=== PATIENT | female | born 1965 | race Asian ===

== ENCOUNTER 2017-01-15 10:05 | Outpatient (CLI) | payer OTHER | END 2017-01-15 17:07 | disposition home or self-care (01) | LOC: SMI 10:05 | PROVIDERS: ATTEND Family Medicine | DX: M47.892 Other spondylosis, cervical region (principal); R42 Dizziness and giddiness | CPT/HCPCS: 70551; 72141 ==

== ENCOUNTER 2018-08-05 03:40 | Inpatient (IN) | payer OTHER ==
[~2018-08-05] VITALS: Ht 152.4 cm; Wt 61.5 kg
[2018-08-05] VITALS (7 sets, daily range): BP systolic 106–148
--- NOTE | 2018-08-05 03:40 | NUR ---
Pt ambulatory to bed 8 for evaluation
--- NOTE | 2018-08-05 03:58 | NUR ---
ER Dr. Luis at bedside examining patient.
[2018-08-05] MEDS ORDERED: METF-833 PO (03:59)
[2018-08-05] MEDS ORDERED: NACL 0.9% 1,000 ML IV ONE (04:00)
[2018-08-05] MEDS ORDERED: KETOROLAC TROMETHAMINE 30 MG VIAL IVP ONE (04:00)
[2018-08-05] MEDS ORDERED: ONDANSETRON HCL 4 MG/2 ML VIAL IVP ONE (04:00)
--- NOTE | 2018-08-05 04:00 | NUR ---
Patient AOx4, ambulatory, presents to ER with complaint of RUQ abdominal pain 12/18 since 229. Patient states that the pain woke her up from her sleep. Patient also states she is nauseous but has not vomited. Patient states she has not medicated for pain. Denies fever or chills. No other symptoms or complaints.
[2018-08-05] MEDS ORDERED: INSULIN SQ (04:01)
--- NOTE | 2018-08-05 04:12 | NUR ---
# 22 gauge angiocath placed to left hand. Use of asceptic technique. Opsite placed over site. Blood return noted. Blood for lab drawn from site. Flushed with 10 cc of normal saline. No evidence of infiltration noted. Patient tolerated well.
[2018-08-05 04:25] LABS: BASOPHILS % (AUTO) 0.7 % (0.0-2.0); EOSINOPHILS # (AUTO) 0.3 K/uL (0.0-0.4); EOSINOPHILS % (AUTO) 4.9 % (0.0-4.0); HEMATOCRIT 40.1 % (36-48); HEMOGLOBIN 13.3 g/dL (12.0-16.0); LYMPHOCYTES # (AUTO) 1.9 K/uL (1.0-5.5); LYMPHOCYTES % (AUTO) 29.7 % (20.5-51.5); MEAN CORPUSCULAR HEMOGLOBIN 29 pg (27-31); MEAN CORPUSCULAR HGB CONC 33 % (32-36); MEAN CORPUSCULAR VOLUME 87 fL (79.0-98.0); MONOCYTES # (AUTO) 0.5 K/uL (0.0-1.0); MONOCYTES % (AUTO) 7.9 % (1.7-9.3); NEUTROPHILS # (AUTO) 3.7 K/uL (1.8-7.7); NEUTROPHILS % (AUTO) 56.8 % (40.0-70.0); PLATELET COUNT (AUTO) 321 K/uL (130-430); RED CELL DISTRIBUTION WIDTH 12.5 % (9.0-15.0); WHITE BLOOD COUNT (AUTO) 6.5 K/uL (4.8-10.8)
[2018-08-05 04:36] LABS: CREATININE 0.62 mg/dL (0.55-1.30); POTASSIUM 3.8 mmol/L (3.5-5.1)
[2018-08-05 04:42] LABS: ALBUMIN 3.3 g/dL (3.4-4.8); TOTAL BILIRUBIN 0.2 mg/dL (0.0-1.0)
[2018-08-05] MEDS ORDERED: MORPHINE 4 MG/ML INJ. SYRINGE IVP ONE (05:45)
--- NOTE | 2018-08-05 05:54 | NUR ---
End of life care decisions discussed with patient by Dr. Luis. Opportunity for questions and concerns addressed. Patient's code status is FULL CODE, paperwork completed and placed in chart.
[2018-08-05] MEDS ORDERED: LIP10 PO (06:01)
[2018-08-05] MEDS ORDERED: GLIP10TA21 PO (06:01)
[2018-08-05] MEDS ORDERED: VITD2000 PO (06:01)
[2018-08-05] MEDS ORDERED: METF750T PO (06:01)
--- NOTE | 2018-08-05 06:01 | NUR ---
Medication reconciliation completed with information provided by patient. Any prior medication reconciliation on file was reviewed and corrected.
--- NOTE | 2018-08-05 06:13 | NUR ---
Patient will be admitted to care of [facility] Admitted to Med Surg unit. Will go to room 135. Belongings list completed. Summary report printed. Report will be given at bedside.
[2018-08-05] MEDS ORDERED: D5W 1,000 ML IV PRN (06:14)
[2018-08-05] MEDS ORDERED: D5/0.45 NS 1,000 ML IV SCH ×2 (06:14→06:15)
[2018-08-05] MEDS ORDERED: MORPHINE 4 MG/ML INJ. SYRINGE IVP PRN ×4 (06:15→13:00)
[2018-08-05] MEDS ORDERED: DEXTROSE 50% JECT 50 ML DISP.SYRIN IVP PRN (06:15)
[2018-08-05] MEDS ORDERED: LORazepam 2 MG/ML VIAL IVP PRN (06:15)
[2018-08-05] MEDS ORDERED: ONDANSETRON HCL 4 MG/2 ML VIAL IVP PRN (06:15)
[2018-08-05] MEDS ORDERED: GLUCOSE 15 GM GEL (in 37.5 GM TUBE) PO PRN (06:15)
[2018-08-05] MEDS ORDERED: MORPHINE 2 MG/ML INJ. SYRINGE IVP PRN (06:15)
--- NOTE | 2018-08-05 06:30 | NUR ---
ADMISSION: The patient, SAKSHI RAMOS, 53 y/o, F admitted by SAUL PADRON MD, with the diagnosis of cholecystitis , to room 108 C ,was given written information regarding hospital policies, unit procedures and contact persons.
--- NOTE | 2018-08-05 07:21 | NUR ---
NEW IV : PT REQUESTED TO START A NEW IV SINCE THE OLD ONE IS ON THE ANTERIOR WRIST AND IT HURTS WHILE MOVING HER HAND , PER PTS REQUEST NEW IV STARTED TO THE R FA 22 G, X 2 ND ATTEMPT ,GOOD BLOOD RETURN NOTED , IV FLUSHED WELL , IV CATH ON THE LEFT WRIST REMOVED , CATH TIP IS INTACT , NO ACTIVE BLEEDING NOTED ; PT TOLERATED WELL . IV FLUIDS NOT STARTED YET - WAITING FOR THE PHARMACY TO VERIFY THE ORDER
--- NOTE | 2018-08-05 08:00 | NUR ---
OPENING NOTE patient received resting in bed A&O x4, patient denies any acute distress or pain at this time, breathing is even and unlabored on room air, educated patient on plan of care and call light system, will continue to monitor, safety precautions in place, at bedside, call light within reach.
--- NOTE | 2018-08-05 08:52 | NUR ---
CONSULT SURGERY CHOLECYSTITIS OU MUKESH [phone] S/W [facility] OFFICE
--- NOTE | 2018-08-05 10:27 | NUR ---
NOTES patient is resting in bed A&O x4, breathing is even and unlabored on room air, IVF infusing as ordered, patient states slight numbness in right fingers but she says she feels this when she wakes up after sleeping, no other acute distress or pain is noted, NPO status in place, safety precautions in place, call light within reach.
--- NOTE | 2018-08-05 12:22 | NUR ---
PATIENT OFF FLOOR for surgery at this time.
[2018-08-05] MEDS ORDERED: LR 1,000 ML IV SCH (12:59)
[2018-08-05] MEDS ORDERED: METOCLOPRAMIDE HCL 10 MG/2 ML VIAL IVP PRN (13:00)
[2018-08-05] MEDS ORDERED: NS IRRIG SOLN 1000 ML IR ONE (13:25)
[2018-08-05] MEDS ORDERED: NEOSTIGMINE METHYLSULFATE 1 MG/ML, 10 ML VIAL ONE (13:25)
[2018-08-05] MEDS ORDERED: PHENYLEPHRINE HCL 10 MG/ML VIAL (NEOSYNEPHRINE) ONE (13:25)
[2018-08-05] MEDS ORDERED: MIDAZOLAM HCL 5 MG/ML VIAL (VERSED) IV ONE (13:25)
[2018-08-05] MEDS ORDERED: BUPIVACAINE /EPINEPHRINE/PF 0.5% 30 ML VIAL INJ ONE (13:25)
[2018-08-05] MEDS ORDERED: ROCURONIUM BROMIDE 10 MG/ML (ZEMURON) ONE (13:25)
[2018-08-05] MEDS ORDERED: NS 1000 ML IV.SOLN IV ONE (13:25)
[2018-08-05] MEDS ORDERED: LR 1,000 ML IV.SOLN IV ONE (13:25)
[2018-08-05] MEDS ORDERED: GLYCOPYRROLATE 0.2 MG/ML VIAL ONE (13:25)
[2018-08-05] MEDS ORDERED: PROPOFOL 200MG/ 20ML VIAL (DIPRIVAN) IV ONE (13:25)
[2018-08-05] MEDS ORDERED: ONDANSETRON HCL 4 MG/2 ML VIAL ONE (13:25)
[2018-08-05] MEDS ORDERED: SEVOFLURANE 15 MIN GAS INH ONE (13:25)
[2018-08-05] MEDS ORDERED: CEFAZOLIN 1 GM IVPB PREMIX 50 ML IV ONE (13:25)
[2018-08-05] MEDS ORDERED: fentaNYL CITRATE 250 MCG/5 ML AMP ONE (13:25)
--- NOTE | 2018-08-05 15:10 | NUR ---
PATIENT BACK FROM SURGERY vital signs are stable, patient denies any acute distress or pain, will continue to monitor, family at bedside.
--- NOTE | 2018-08-05 17:25 | NUR ---
BLOOD SUGAR IS 249 at this time, 4 units of insulin given per sliding scale, educated patient to eat dinner.
[2018-08-05] MEDS: INSULIN REGULAR, HUMAN 100 UNITS/ML, 10 ML VIAL (novoLIN R) SUBCUT PRN ×2 (17:26→23:24)
--- NOTE | 2018-08-05 18:26 | NUR ---
CLOSING NOTE patient is resting in bed, patient is tolerating clear liquid diet well with no n/v, patient states she is feeling dizzy, educated patient to call if she needs to get out of bed, IVF infusing as ordered, all needs were met throughout shift, CHARLI drain intact, 3 abdominal dressings intact, will endorse report to oncoming nurse, family at bedside, call light within reach.
--- NOTE | 2018-08-05 19:45 | NUR ---
Opening notes Patient resting in bed. Patient complains of nausea and vomited yellow liquid. Zofran was given. No other needs at this time. IV patent and intact. Bilateral SCDs in place. Call light with the patient. Safety precautions in place. Family at bedside.
--- NOTE | 2018-08-05 21:30 | NUR ---
Resting Watching TV. No signs of distress noted. Breathing even and unlabored. Educated patient on incentive spirometer. Patient able to inspire 1000 ml. Call light with the patient. Safety precautions in place.
--- NOTE | 2018-08-05 23:45 | NUR ---
Sleeping No signs of distress noted. Breathing even and unlabored. Call light with the patient. Safety precautions in place.
[2018-08-06 00:35] VITALS: BP_SYST 122
--- NOTE | 2018-08-06 02:08 | NUR ---
Ambulated to bathroom steady gait. Patient voided. Patient back in bed resting comfortably. No signs of distress. Call light with the patient. Safety precautions in place.
--- NOTE | 2018-08-06 04:30 | NUR ---
Sleeping No signs of distress noted. Breathing is even and unlabored. Safety precautions in place.
--- NOTE | 2018-08-06 06:35 | NUR ---
Closing notes Patient resting in bed. No signs of distress noted. Breathing even and unlabored. Reminded patient to use incentive spirometer throughout the day. Patient agreed. IV patent and intact, saline locked. Patient refusing SCDs. All needs met throughout the shift. Call light with the patient. Safety precautions in place. Will endorse care to day shift RN.
[2018-08-06 07:05] LABS: BASOPHILS % (AUTO) 0.5 % (0.0-2.0); EOSINOPHILS # (AUTO) 0.1 K/uL (0.0-0.4); EOSINOPHILS % (AUTO) 1.2 % (0.0-4.0); HEMATOCRIT 38.6 % (36-48); HEMOGLOBIN 13.1 g/dL (12.0-16.0); LYMPHOCYTES # (AUTO) 1.9 K/uL (1.0-5.5); LYMPHOCYTES % (AUTO) 17.5 % (20.5-51.5); MEAN CORPUSCULAR HEMOGLOBIN 29 pg (27-31); MEAN CORPUSCULAR HGB CONC 34 % (32-36); MEAN CORPUSCULAR VOLUME 86 fL (79.0-98.0); MONOCYTES # (AUTO) 0.7 K/uL (0.0-1.0); MONOCYTES % (AUTO) 6.6 % (1.7-9.3); NEUTROPHILS # (AUTO) 7.9 K/uL (1.8-7.7); NEUTROPHILS % (AUTO) 74.2 % (40.0-70.0); PLATELET COUNT (AUTO) 338 K/uL (130-430); RED BLOOD CELL COUNT(AUTO) 4.48 MIL/uL (4.2-6.2); RED CELL DISTRIBUTION WIDTH 12.6 % (9.0-15.0)
[2018-08-06 07:16] LABS: CALCIUM 9.1 mg/dL (8.4-11.0); CREATININE 0.52 mg/dL (0.55-1.30); POTASSIUM 3.3 mmol/L (3.5-5.1); TOTAL BILIRUBIN 0.3 mg/dL (0.0-1.0)
[2018-08-06 07:22] LABS: WHITE BLOOD COUNT (AUTO) 10.6 K/uL (4.8-10.8)
--- NOTE | 2018-08-06 08:00 | NUR ---
OPENING NOTE patient received resting in bed A&O x4, patient ambulated to the bathroom with steady gait, patient denies any acute distress or pain at this time, patient tolerating clear liquid diet well with no n/v, educated patient on plan of care and call light system, will continue to monitor, safety precautions in place, call light within reach.
[2018-08-06 08:01] VITALS: BP_SYST 127
[2018-08-06] MEDS ORDERED: HYDROcodone/ACETAMIN 10-325 MG TAB PO PRN (10:00)
[2018-08-06] MEDS ORDERED: ACETAMINOPHEN 325 MG TABLET PO PRN (10:00)
[2018-08-06] MEDS ORDERED: HYDROcodone/ACETAMIN 5-325 MG TAB (NORCO/ VICODIN) PO PRN (10:00)
[2018-08-06] MEDS ORDERED: POTASSIUM CHLORIDE 20 MEQ TAB.PRT.SR PO ONE (10:00)
--- NOTE | 2018-08-06 10:05 | NUR ---
NOTES patient is sitting in chair at bedside, patient denies any acute distress or pain at this time, breathing is even and unlabored on room air, no nausea or vomiting on clear liquid diet, will advance diet as tolerated, will continue to monitor, safety precautions in place, call light within reach.
[2018-08-06 11:39] VITALS: BP_SYST 138
[2018-08-06] MEDS: INSULIN REGULAR, HUMAN 100 UNITS/ML, 10 ML VIAL (novoLIN R) SUBCUT PRN ×2 (11:56→17:25)
--- NOTE | 2018-08-06 12:15 | NUR ---
NOTES / BLOOD SUGAR blood sugar is 303 a this time, 8 units of insulin given per sliding scale, patient denies any acute distress or pain, breathing is even and unlabored on room air, will continue to monitor, family at bedside, safety precautions in place, call light within reach.
--- NOTE | 2018-08-06 14:30 | NUR ---
NOTES patient ambulated to bathroom with steady gait, patient denies any acute distress or pain, breathing is even and unlabored on room air, family is at bedside, no nausea/vomiting noted, will continue to monitor, safety precautions in place, call light within reach.
[2018-08-06 15:36] VITALS: BP_SYST 132
--- NOTE | 2018-08-06 17:27 | NUR ---
BLOOD SUGAR is 222, 4 units insulin given per sliding scale.
--- NOTE | 2018-08-06 18:33 | NUR ---
CLOSING NOTE patient is resting in bed A&O x4, patient tolerating diet well with no n/v, breathing is even and unlabored on room air, CHARLI intact, all needs were met throughout shift, will endorse report to oncoming nurse, safety precautions in place, call light within reach, family at bedside.
[2018-08-06 19:20] VITALS: BP_SYST 128
--- NOTE | 2018-08-06 19:20 | NUR ---
Start of shift Assessment Received patient resting in bed awake alert oriented x 4 with family at bedside. No s/s of any distress noted. IV noted L f/a g 22 no infiltrate and with good blood return. Discussed plan of care with patient and verbalized understanding. All extremities are strong, ambulatory. Call light in reach, will cont to monitor.
--- NOTE | 2018-08-06 21:50 | NUR ---
Resting comfortably Patient is resting comfortably in bed. No s/s of any distress and no c/o pain noted. Call light in reach, will cont to monitor.
[2018-08-07] MEDS: INSULIN REGULAR, HUMAN 100 UNITS/ML, 10 ML VIAL (novoLIN R) SUBCUT PRN ×5 (00:31→22:13)
--- NOTE | 2018-08-07 02:10 | NUR ---
Resting comfortably Patient is resting comfortably in bed with eyes close at this time. No c/o pain noted. Call light in reach, will cont to monitor.
[2018-08-07 05:30] LABS: BASOPHILS % (AUTO) 0.4 % (0.0-2.0); EOSINOPHILS # (AUTO) 0.3 K/uL (0.0-0.4); EOSINOPHILS % (AUTO) 3.7 % (0.0-4.0); HEMATOCRIT 38.5 % (36-48); HEMOGLOBIN 12.7 g/dL (12.0-16.0); LYMPHOCYTES # (AUTO) 1.7 K/uL (1.0-5.5); LYMPHOCYTES % (AUTO) 24.7 % (20.5-51.5); MEAN CORPUSCULAR HEMOGLOBIN 29 pg (27-31); MEAN CORPUSCULAR HGB CONC 33 % (32-36); MEAN CORPUSCULAR VOLUME 87 fL (79.0-98.0); MONOCYTES # (AUTO) 0.7 K/uL (0.0-1.0); MONOCYTES % (AUTO) 10.1 % (1.7-9.3); NEUTROPHILS # (AUTO) 4.2 K/uL (1.8-7.7); NEUTROPHILS % (AUTO) 61.1 % (40.0-70.0); PLATELET COUNT (AUTO) 321 K/uL (130-430); RED BLOOD CELL COUNT(AUTO) 4.44 MIL/uL (4.2-6.2); RED CELL DISTRIBUTION WIDTH 12.7 % (9.0-15.0); WHITE BLOOD COUNT (AUTO) 6.8 K/uL (4.8-10.8)
[2018-08-07 06:46] LABS: ALBUMIN 3.1 g/dL (3.4-4.8); CALCIUM 9.4 mg/dL (8.4-11.0); CREATININE 0.53 mg/dL (0.55-1.30); TOTAL BILIRUBIN 0.5 mg/dL (0.0-1.0)
--- NOTE | 2018-08-07 06:50 | NUR ---
End of shift Notes Patient is awake resting in bed at this time. No c/o pain and no s/s of any distress noted. All needs met and anticipated by staff. Call light in reach, bed alarm on and side rails up x2 for safety. Will endorse care to incoming nurse.
--- NOTE | 2018-08-07 07:52 | NUR ---
Opening Note Report received from Frankie DORSEY shift nurse. Patient is awake and having breakfast in bed. Currently c/o 6/10 abd pain. Will medicate accordingly. Abdominal incisions are dry and intact. RUQ CHARLI drain is in place, draining sanguinous drainage. IV is on the RFA 22g, SL. Call light is within reach and bed is in the lowest position. Will continue to monitor.
[2018-08-07 08:02] VITALS: BP_SYST 136
--- NOTE | 2018-08-07 10:20 | NUR ---
Rounds Patient is ambulating around the unit with her .
[2018-08-07 12:13] VITALS: BP_SYST 116
--- NOTE | 2018-08-07 12:25 | NUR ---
Rounds/Accu check Patient is having lunch in bed. Current accu check was 235. Covered with 4u of Regular insulin
--- NOTE | 2018-08-07 14:40 | NUR ---
Rounds Patient is ambulating around the unit. No c/o pain at the moment. CHARLI was drained, 10ml out.
[2018-08-07 16:00] VITALS: BP_SYST 128
--- NOTE | 2018-08-07 16:41 | NUR ---
Rounds Patient is currently ambulating around the unit.
--- NOTE | 2018-08-07 18:26 | NUR ---
Closing Note Patient is currently resting in bed. Patient is not reporting any pain at the moment. Has been tolerating her full liquid diet well. Abd. incisions are dry and intact. Iv is on the RFA 22g, SL. Call light is within reach and bed is in the lowest position. Will continue to monitor.
--- NOTE | 2018-08-07 19:30 | NUR ---
INITIAL NOTES PATIENT AWAKE AND RESTING WITH FAMILY ON THE BEDSIDE BREATHING EVEN AND UNLABORED NO PAIN NOTED, PATIENT STATED THAT SHE IS READY TO GO HOME STATED THAT SHE MIGHT GO HOME TODAY. EXPLAINED THE PLAN OF CARE AND STATED UNDERSTANDING, MAINTAINED POSITION OF COMFORT AND SAFETY, WILL CONTINUE TO MONITOR CALL LIGHT WITHIN REACH
[2018-08-07 20:00] VITALS: BP_SYST 130
--- NOTE | 2018-08-07 20:59 | NUR ---
PAGED PAGING MUKESH ZHANG ([phone]), SPOKE WITH SARAH.
--- NOTE | 2018-08-07 21:15 | NUR ---
SPOKE TO DR. MASSEY, STATED OK TO DC THE PATIENT HOME TODAY AND IS CLEARED FROM SURGERY AND TO REMOVE THE CHARLI DRAIN BEFORE DC WILL GIVE REPORT TO DR. PADRON.
--- NOTE | 2018-08-07 21:15 | NUR ---
PAGED PAGING DR. HUGHES [facility], SPOKE WITH DONI.
--- NOTE | 2018-08-07 21:45 | NUR ---
PAGED x2 SECOND PAGE SENT OUT TO DR. SAUL PADRON, SPOKE WITH JAMIA.
--- NOTE | 2018-08-07 21:45 | NUR ---
SPOKE TO DR. PADRON, SAID PATIENT WILL BE DISCHARGED TOMORROW AND WILL GIVE PRESCRIPTIONS.
--- NOTE | 2018-08-08 | NUR ---
RN ROUNDS PATIENT SLEEPING AND RESTING, NO PAIN NOTED, SAFETY PRECAUTIONS NOTED, WILL CONTINUE TO MONITOR
--- NOTE | 2018-08-08 02:00 | NUR ---
RN ROUNDS PATIENT SLEEPING AND RESTING NO PAIN NOTED SAFETY PRECAUTIONS MAINTAINED
[2018-08-08 02:23] VITALS: BP_SYST 103
--- NOTE | 2018-08-08 04:09 | NUR ---
RN ROUNDS PATIENT SLEEPING AND RESTING NO PAIN NOTED SAFETY PRECAUTIONS MAINTAINED
[2018-08-08] MEDS: INSULIN REGULAR, HUMAN 100 UNITS/ML, 10 ML VIAL (novoLIN R) SUBCUT PRN ×2 (06:13→11:20)
--- NOTE | 2018-08-08 06:33 | NUR ---
CHARLI DRAIN REMOVED CHARLI DRAIN REMOVED, PATIENT WITH 10CC SEROSANGUINOUS OUTPUT, TOLERATED WELL, CHARLI DRAIN INTACT PLACED GAUZE DRESSING AND SECURED WITH TAPE. NO BLEEDING NTOED, WILL CONTINUE TO MONITOR CALL LIGHT WITHIN REACH
--- NOTE | 2018-08-08 06:34 | NUR ---
CLOSING NOTES PATIENT AWAKE AND RESTING ABLE TO AMBULATE TO THE BATHROOM TOLERATING WELL, NO BLEEDING NOTED ON THE CHARLI SITE, CLEAN DRY INTACT. ALL NEEDS MET WILL GIVE REPORT TO AM NURSE, SAFETY PRECAUTIONS MAINTAINED. WILL CONTINUE TO MONITOR CALL LIGHT WITHIN REACH
--- NOTE | 2018-08-08 07:25 | NUR ---
Opening Note: Patient in bed resting, at bedside. Patient denies pain and discomfort. Breathing is even and unlabored with no distress noted. IV patent and intact. Safety precautions in place; bed in lowest position, wheels locked, side rails x3 and call light within reach. No needs at this time. Will continue to monitor.
[2018-08-08 08:34] VITALS: BP_SYST 100
[2018-08-08 09:29] VITALS: BP_SYST 100
[2018-08-08 09:57] VITALS: BP_SYST 120
--- NOTE | 2018-08-08 10:39 | NUR ---
Nutrition Update Enrique Scale 18 noted. Pt admitted for cholecystitis . Diet: soft (low fiber/bland) BMI: 26.5 kg/m2 RD to follow per nutrition care standards.
[2018-08-08 11:16] VITALS: BP_SYST 120
--- NOTE | 2018-08-08 11:20 | NUR ---
Accucheck: Blood sugar 248, covered with 4 units Novolin R per sliding scale, see eMAR.
--- NOTE | 2018-08-08 11:35 | NUR ---
Paging Dr. Saini: Paging Dr. Saini to follow up regarding discharge. Awaiting callback.
--- NOTE | 2018-08-08 11:44 | NUR ---
Spoke to Dr. Saini: Spoke to Dr. Saini, per Dr. Saini "I will be there in the next 30 minutes or so to discharge the patient and write a prescription."
[2018-08-08] MEDS ORDERED: ACET325T53 PO (12:06)
[2018-08-08] MEDS ORDERED: IBUP-1969 PO (12:06)
--- NOTE | 2018-08-08 12:30 | NUR ---
Lunch: Patient ate lunch tray. No signs of hypoglycemia.
--- NOTE | 2018-08-08 12:43 | NUR ---
D/C Patient Patient given medication reconciliation form and D/C instructions. Exit Care provided. Patient verbalized understanding. MD discussed with patient the results and treatment provided. Ambulatory with steady gait for discharge to home. Patient in stable condition, ID band removed. IV catheter removed, intact and dressing applied, no active bleeding. Rx of meds given. Patient educated on pain management. All belongings sent with patient.
== END 2018-08-08 12:43 | disposition home or self-care (01) | DRG 419 ==
LOC: SED 03:40 → SMU 06:14
PROVIDERS: ADMIT Preventive Medicine Preventive Medicine/Occupational Environmental Medicine; ATTEND Preventive Medicine Preventive Medicine/Occupational Environmental Medicine
PROC: 0FT44ZZ Resection of Gallbladder, Percutaneous Endoscopic Approach (ICD-10-PCS; principal; 2018-08-05 11:45)
DX: K80.00 Calculus of gallbladder with acute cholecystitis without obstruction (principal); E11.65 Type 2 diabetes mellitus with hyperglycemia; E55.9 Vitamin D deficiency, unspecified; E78.5 Hyperlipidemia, unspecified; E87.6 Hypokalemia; R74.0 Nonspecific elevation of levels of transaminase and lactic acid dehydrogenase [LDH]; Z90.49 Acquired absence of other specified parts of digestive tract; Z88.8 Allergy status to other drugs, medicaments and biological substances; Z79.84 Long term (current) use of oral hypoglycemic drugs; Z79.4 Long term (current) use of insulin; Z79.899 Other long term (current) drug therapy
CPT/HCPCS: 36415; 71045; 76700-TC; 80053; 82962; 83690-TC; 84703; 85025; 88304; 96361; 96374; 96375; 99285; C1727; J0690; J1885; J2250; J2270; J2370; J2405; J2704; J2710; J3010; J3490; J7030; J7120

== ENCOUNTER 2018-11-25 09:38 | Emergency (ER) | payer OTHER ==
[~2018-11-25] VITALS: Ht 152.4 cm; Wt 57.2 kg
[~2018-11-25 09:38] MED LIST: ACET325T53 PO; GLIP10TA21 PO; IBUP-1969 PO; INSULIN SQ; LIP10 PO; METF750T PO; VITD2000 PO
[2018-11-25 09:58] VITALS: BP_SYST 146
--- NOTE | 2018-11-25 10:26 | NUR ---
Dr. Briggs to see patient in triage.
[2018-11-25 10:59] LABS: CALCIUM 9.2 mg/dL (8.4-11.0); CREATININE 0.57 mg/dL (0.55-1.30); POTASSIUM 3.9 mmol/L (3.5-5.1)
[2018-11-25 11:06] LABS: ALBUMIN 3.8 g/dL (3.4-4.8); TOTAL BILIRUBIN 0.2 mg/dL (0.0-1.0)
[2018-11-25 11:15] LABS: HEMATOCRIT 40.3 % (36-48); HEMOGLOBIN 13.5 g/dL (12.0-16.0); MEAN CORPUSCULAR HEMOGLOBIN 29 pg (27-31); MEAN CORPUSCULAR VOLUME 88 fL (79.0-98.0); RED BLOOD CELL COUNT(AUTO) 4.58 MIL/uL (4.2-6.2); WHITE BLOOD COUNT (AUTO) 6.3 K/uL (4.8-10.8)
[2018-11-25 11:16] LABS: BASOPHILS % (AUTO) 0.6 % (0.0-2.0); EOSINOPHILS # (AUTO) 0.2 K/uL (0.0-0.4); LYMPHOCYTES # (AUTO) 1.6 K/uL (1.0-5.5); LYMPHOCYTES % (AUTO) 24.8 % (20.5-51.5); MEAN CORPUSCULAR HGB CONC 33 % (32-36); MONOCYTES # (AUTO) 0.4 K/uL (0.0-1.0); MONOCYTES % (AUTO) 6.6 % (1.7-9.3); NEUTROPHILS # (AUTO) 4.4 K/uL (1.8-7.7); PLATELET COUNT (AUTO) 352 K/uL (130-430); RED CELL DISTRIBUTION WIDTH 13.4 % (9.0-15.0)
--- NOTE | 2018-11-25 11:48 | NUR ---
Patient to ER bed 6 to gown for evaluation. Side rails up. Report given to Carli STUART.
[2018-11-25 11:49] LABS: BILIRUBIN,URINE NEGATIVE (NEGATIVE); BLOOD, URINE NEGATIVE (NEGATIVE); CLARITY/URINE CLEAR (CLEAR); COLOR,URINE YELLOW (YELLOW); GLUCOSE,URINE NEGATIVE (NEGATIVE); KETONES,URINE NEGATIVE (NEGATIVE); LEUKOCYTE ESTERASE ,URINE NEGATIVE (NEGATIVE); NITRITE, URINE NEGATIVE (NEGATIVE); PROTEIN URINE NEGATIVE (NEGATIVE); UROBILINOGEN,URINE 0.2 (0.2-1.0)
--- NOTE | 2018-11-25 11:50 | NUR ---
Pt AAOx4 ambulated into ED c/o generalized weakness, shakiness s/p getting blood drawn today. Skin pink dry and warm, breathing even and unlabored. No other injuries/complaints per pt/noted. Will continue to monitor.
--- NOTE | 2018-11-25 11:54 | NUR ---
ER Dr. Briggs at bedside examining patient.
[2018-11-25 12:17] VITALS: BP_SYST 134
--- NOTE | 2018-11-25 12:17 | NUR ---
Patient given written and verbal discharge instructions and verbalizes understanding. ER MD Briggs discussed with patient the results and treatment provided. Patient in stable condition. ID arm band removed. No Rx given. Patient educated on pain management and to follow up with PMD. Pain Scale 0. Opportunity for questions provided and answered. Medication side effect fact sheet provided.
== END 2018-11-25 12:17 | disposition home or self-care (01) ==
LOC: SED 09:38
DX: R53.1 Weakness (principal); E11.9 Type 2 diabetes mellitus without complications; Z88.8 Allergy status to other drugs, medicaments and biological substances; Z79.899 Other long term (current) drug therapy
CPT/HCPCS: 36415; 80053; 81003; 81025; 82962; 84484; 85025; 93005; 99284

== ENCOUNTER 2018-11-27 14:25 | Outpatient (CLI) | payer OTHER ==
[2018-11-25 10:51] LABS: BASOPHILS % (AUTO) 0.6 % (0.0-2.0); EOSINOPHILS # (AUTO) 0.2 K/uL (0.0-0.4); HEMATOCRIT 40.3 % (36-48); HEMOGLOBIN 13.5 g/dL (12.0-16.0); LYMPHOCYTES # (AUTO) 1.6 K/uL (1.0-5.5); LYMPHOCYTES % (AUTO) 24.8 % (20.5-51.5); MEAN CORPUSCULAR HEMOGLOBIN 29 pg (27-31); MEAN CORPUSCULAR HGB CONC 33 % (32-36); MEAN CORPUSCULAR VOLUME 88 fL (79.0-98.0); MONOCYTES # (AUTO) 0.4 K/uL (0.0-1.0); MONOCYTES % (AUTO) 6.6 % (1.7-9.3); NEUTROPHILS # (AUTO) 4.1 K/uL (1.8-7.7); PLATELET COUNT (AUTO) 352 K/uL (130-430); RED BLOOD CELL COUNT(AUTO) 4.58 MIL/uL (4.2-6.2); RED CELL DISTRIBUTION WIDTH 13.4 % (9.0-15.0); WHITE BLOOD COUNT (AUTO) 6.3 K/uL (4.8-10.8)
[2018-11-25 11:25] LABS: ALBUMIN 3.9 g/dL (3.4-4.8); CALCIUM 9.7 mg/dL (8.4-11.0); CREATININE 0.54 mg/dL (0.55-1.30); POTASSIUM 3.7 mmol/L (3.5-5.1); TOTAL BILIRUBIN 0.2 mg/dL (0.0-1.0)
[2018-11-25 11:52] LABS: THYROID STIMULATING HORMONE 2.27 uIu/mL (0.36-3.74)
[2018-11-27 07:18] LABS: HEMOGLOBIN A1C 9.5 % (4.8-5.6)
[2018-11-27 11:21] LABS: CREATININE, URINE 15.3 mg/dL; MICROALBUMIN URINE RANDOM < 3.0 ug/ml (NOT ESTABLISHED); MICROALBUMIN/CREAT RATIO, UR <19.6 MG/G CRE (0.0-30.0)
== END 2018-11-27 15:00 | disposition home or self-care (01) ==
LOC: SLB 14:25
PROVIDERS: ATTEND Specialist
DX: E11.65 Type 2 diabetes mellitus with hyperglycemia (principal); E78.2 Mixed hyperlipidemia; E55.9 Vitamin D deficiency, unspecified; E66.3 Overweight
CPT/HCPCS: 36415; 80053; 80061; 82043; 82306; 82570; 83036; 84443-TC; 85025

== ENCOUNTER 2019-02-24 14:41 | Outpatient (CLI) | payer OTHER | END 2019-02-24 20:49 | disposition home or self-care (01) | LOC: SMA 14:41 | PROVIDERS: ATTEND Internal Medicine | DX: Z12.31 Encounter for screening mammogram for malignant neoplasm of breast (principal); N64.89 Other specified disorders of breast | CPT/HCPCS: 77067 ==

== ENCOUNTER 2019-03-26 14:06 | Outpatient (CLI) | payer OTHER | END 2019-03-26 21:17 | disposition home or self-care (01) | LOC: SUS 14:06 | PROVIDERS: ATTEND Internal Medicine | DX: N63.21 Unspecified lump in the left breast, upper outer quadrant (principal); N63.11 Unspecified lump in the right breast, upper outer quadrant | CPT/HCPCS: 76641; 77066 ==

== ENCOUNTER 2019-04-13 09:37 | Outpatient (CLI) | payer OTHER ==
[2019-04-13 10:01] LABS: BASOPHILS % (AUTO) 0.5 % (0.0-2.0); EOSINOPHILS # (AUTO) 0.2 K/uL (0.0-0.4); EOSINOPHILS % (AUTO) 3.2 % (0.0-4.0); HEMATOCRIT 39.5 % (36-48); HEMOGLOBIN 12.9 g/dL (12.0-16.0); LYMPHOCYTES # (AUTO) 1.8 K/uL (1.0-5.5); LYMPHOCYTES % (AUTO) 23.6 % (20.5-51.5); MEAN CORPUSCULAR HEMOGLOBIN 29 pg (27-31); MEAN CORPUSCULAR HGB CONC 33 % (32-36); MEAN CORPUSCULAR VOLUME 89 fL (79.0-98.0); MONOCYTES # (AUTO) 0.6 K/uL (0.0-1.0); MONOCYTES % (AUTO) 7.9 % (1.7-9.3); NEUTROPHILS % (AUTO) 64.8 % (40.0-70.0); PLATELET COUNT (AUTO) 312 K/uL (130-430); RED BLOOD CELL COUNT(AUTO) 4.42 MIL/uL (4.2-6.2); WHITE BLOOD COUNT (AUTO) 7.7 K/uL (4.8-10.8)
[2019-04-13 10:18] LABS: ALBUMIN 3.7 g/dL (3.4-4.8); CREATININE 0.61 mg/dL (0.55-1.30); POTASSIUM 4.2 mmol/L (3.5-5.1); TOTAL BILIRUBIN 0.2 mg/dL (0.0-1.0)
== END 2019-04-13 21:21 | disposition home or self-care (01) ==
LOC: SLB 09:37
PROVIDERS: ATTEND Specialist
DX: E11.65 Type 2 diabetes mellitus with hyperglycemia (principal); E78.2 Mixed hyperlipidemia; E66.3 Overweight
CPT/HCPCS: 36415; 80053; 80061; 83036; 85025

== ENCOUNTER 2019-10-16 08:35 | Outpatient (CLI) | payer OTHER ==
[2019-10-16 08:55] LABS: BASOPHILS % (AUTO) 0.7 % (0.0-2.0); EOSINOPHILS # (AUTO) 0.3 K/uL (0.0-0.4); HEMATOCRIT 39.3 % (36-48); HEMOGLOBIN 13.2 g/dL (12.0-16.0); LYMPHOCYTES # (AUTO) 2.2 K/uL (1.0-5.5); LYMPHOCYTES % (AUTO) 31.1 % (20.5-51.5); MEAN CORPUSCULAR HEMOGLOBIN 30 pg (27-31); MEAN CORPUSCULAR HGB CONC 34 % (32-36); MEAN CORPUSCULAR VOLUME 88 fL (79.0-98.0); MONOCYTES # (AUTO) 0.5 K/uL (0.0-1.0); MONOCYTES % (AUTO) 7.1 % (1.7-9.3); NEUTROPHILS # (AUTO) 4.1 K/uL (1.8-7.7); NEUTROPHILS % (AUTO) 57.1 % (40.0-70.0); PLATELET COUNT (AUTO) 320 K/uL (130-430); RED BLOOD CELL COUNT(AUTO) 4.46 MIL/uL (4.2-6.2); RED CELL DISTRIBUTION WIDTH 12.6 % (9.0-15.0); WHITE BLOOD COUNT (AUTO) 7.1 K/uL (4.8-10.8)
[2019-10-16 09:40] LABS: ALBUMIN 3.6 g/dL (3.4-4.8); CALCIUM 9.3 mg/dL (8.4-11.0); CREATININE 0.61 mg/dL (0.55-1.30); POTASSIUM 3.8 mmol/L (3.5-5.1); THYROID STIMULATING HORMONE 1.52 uIu/mL (0.34-4.82); TOTAL BILIRUBIN 0.3 mg/dL (0.0-1.0)
== END 2019-10-16 20:57 | disposition home or self-care (01) ==
LOC: SLB 08:35
PROVIDERS: ATTEND Specialist
DX: E11.65 Type 2 diabetes mellitus with hyperglycemia (principal); E66.3 Overweight
CPT/HCPCS: 36415; 80053; 82043; 82570; 83036; 84443-TC; 85025

== ENCOUNTER 2019-11-24 11:50 | Emergency (ER) | payer OTHER ==
[~2019-11-24] VITALS: Ht 152.4 cm; Wt 59.0 kg
[2019-11-24 12:02] VITALS: BP_SYST 146
--- NOTE | 2019-11-24 13:52 | NUR ---
Patient to ER bed 6 to gown for evaluation. Side rails up. Report given to NARCISO Akbar.
--- NOTE | 2019-11-24 14:02 | NUR ---
Pt states she is not in pain but having numb hands, shaky, and dizziness. Pt resting in rney on monitor no distress noted at this time.
[2019-11-24] MEDS ORDERED: NACL 0.9% 1,000 ML IV ONE (14:58)
[2019-11-24] MEDS ORDERED: MECLIZINE HCL 25 MG TABLET (ANITVERT) PO ONE (15:00)
--- NOTE | 2019-11-24 15:00 | NUR ---
ER at bedside examining patient.
[2019-11-24 15:33] LABS: BASOPHILS # (AUTO) 0.1 K/uL (0.0-0.2); BASOPHILS % (AUTO) 0.7 % (0.0-2.0); EOSINOPHILS # (AUTO) 0.4 K/uL (0.0-0.4); EOSINOPHILS % (AUTO) 5.2 % (0.0-4.0); HEMATOCRIT 37.7 % (36-48); HEMOGLOBIN 12.8 g/dL (12.0-16.0); LYMPHOCYTES # (AUTO) 2.4 K/uL (1.0-5.5); LYMPHOCYTES % (AUTO) 30.9 % (20.5-51.5); MEAN CORPUSCULAR HEMOGLOBIN 30 pg (27-31); MEAN CORPUSCULAR HGB CONC 34 % (32-36); MEAN CORPUSCULAR VOLUME 87 fL (79.0-98.0); MONOCYTES # (AUTO) 0.5 K/uL (0.0-1.0); MONOCYTES % (AUTO) 6.3 % (1.7-9.3); NEUTROPHILS # (AUTO) 4.4 K/uL (1.8-7.7); NEUTROPHILS % (AUTO) 56.9 % (40.0-70.0); PLATELET COUNT (AUTO) 335 K/uL (130-430); RED BLOOD CELL COUNT(AUTO) 4.32 MIL/uL (4.2-6.2); RED CELL DISTRIBUTION WIDTH 12.7 % (9.0-15.0); WHITE BLOOD COUNT (AUTO) 7.8 K/uL (4.8-10.8)
[2019-11-24 15:43] LABS: CALCIUM 8.9 mg/dL (8.4-11.0); CREATININE 0.62 mg/dL (0.55-1.30); POTASSIUM 3.7 mmol/L (3.5-5.1)
[2019-11-24 15:49] LABS: ALBUMIN 3.4 g/dL (3.4-4.8); TOTAL BILIRUBIN 0.3 mg/dL (0.0-1.0)
--- NOTE | 2019-11-24 16:52 | NUR ---
Pt asleep in bed at this time
--- NOTE | 2019-11-24 18:30 | NUR ---
Pt resting comfortably, no anxiety, or previous s/s
--- NOTE | 2019-11-24 19:00 | NUR ---
Pt resting in [facility] at this time. No distress noted, VSS.
--- NOTE | 2019-11-24 19:18 | NUR ---
Pt is resting, AxOx4. No complaints at this time.
[2019-11-24 20:50] VITALS: BP_SYST 132
--- NOTE | 2019-11-24 20:50 | NUR ---
Patient given written and verbal discharge instructions and verbalizes understanding. ER MD discussed with patient the results and treatment provided. Patient in stable condition. ID arm band removed. IV catheter removed intact and dressing applied, no active bleeding. Rx of Meclizine given. Patient educated on pain management and to follow up with PMD. Opportunity for questions provided and answered. Medication side effect fact sheet provided.
== END 2019-11-24 20:50 | disposition home or self-care (01) ==
LOC: SED 11:50
DX: F41.9 Anxiety disorder, unspecified (principal); R42 Dizziness and giddiness; E11.9 Type 2 diabetes mellitus without complications; Z79.899 Other long term (current) drug therapy; Z79.4 Long term (current) use of insulin; Z88.1 Allergy status to other antibiotic agents
CPT/HCPCS: 36415; 80053; 81002; 85025; 96360; 99285; J7030; J8597

== ENCOUNTER 2020-06-08 12:35 | Outpatient (CLI) | payer OTHER | END 2020-06-08 20:06 | disposition home or self-care (01) | LOC: SMA 12:35 | PROVIDERS: ATTEND Family Medicine | DX: Z12.31 Encounter for screening mammogram for malignant neoplasm of breast (principal); N64.89 Other specified disorders of breast | CPT/HCPCS: 77067 ==

== ENCOUNTER 2022-04-24 10:53 | Outpatient (CLI) | payer OTHER ==
[2022-04-24 11:50] LABS: BASOPHILS # (AUTO) 0.1 K/uL (0.0-0.2); BASOPHILS % (AUTO) 0.8 % (0.0-2.0); EOSINOPHILS # (AUTO) 0.3 K/uL (0.0-0.4); EOSINOPHILS % (AUTO) 3.9 % (0.0-4.0); HEMATOCRIT 39.3 % (36-48); LYMPHOCYTES # (AUTO) 2.4 K/uL (1.0-5.5); LYMPHOCYTES % (AUTO) 35.4 % (20.5-51.5); MEAN CORPUSCULAR HEMOGLOBIN 30 pg (27-31); MEAN CORPUSCULAR HGB CONC 33 % (32-36); MEAN CORPUSCULAR VOLUME 90 fL (79.0-98.0); MONOCYTES # (AUTO) 0.5 K/uL (0.0-1.0); MONOCYTES % (AUTO) 7.2 % (1.7-9.3); NEUTROPHILS # (AUTO) 3.6 K/uL (1.8-7.7); NEUTROPHILS % (AUTO) 52.7 % (40.0-70.0); PLATELET COUNT (AUTO) 331 K/uL (130-430); RED BLOOD CELL COUNT(AUTO) 4.38 MIL/uL (4.2-6.2); RED CELL DISTRIBUTION WIDTH 12.5 % (9.0-15.0); WHITE BLOOD COUNT (AUTO) 6.8 K/uL (4.8-10.8)
[2022-04-24 12:23] LABS: ALBUMIN 3.8 g/dL (3.4-4.8); CALCIUM 9.6 mg/dL (8.4-11.0); CREATININE 0.41 mg/dL (0.55-1.30); FREE T4 (FREE THYROXINE) 1.1 ng/dL (0.6-1.6); THYROID STIMULATING HORMONE 1.86 uIu/mL (0.34-4.82); TOTAL BILIRUBIN 0.3 mg/dL (0.0-1.0)
== END 2022-04-24 19:13 | disposition home or self-care (01) ==
LOC: SLB 10:53
PROVIDERS: ATTEND Family Medicine
DX: Z13.220 Encounter for screening for lipoid disorders (principal); Z13.1 Encounter for screening for diabetes mellitus; I10 Essential (primary) hypertension; Z13.9 Encounter for screening, unspecified
CPT/HCPCS: 36415; 80053; 80061; 82306; 83037; 84439; 84443; 85025

== ENCOUNTER 2022-05-03 08:40 | Outpatient (CLI) | payer OTHER | END 2022-05-03 21:08 | disposition home or self-care (01) | LOC: SMA 08:40 | DX: Z12.31 Encounter for screening mammogram for malignant neoplasm of breast (principal); N63.11 Unspecified lump in the right breast, upper outer quadrant; N64.89 Other specified disorders of breast | CPT/HCPCS: 77067 ==